=== PATIENT | female | born 1990 | race Caucasian/White ===

== ENCOUNTER 2016-04-17 17:31 | Emergency (ER) | payer BC ==
[~2016-04-17] VITALS: Ht 170.2 cm; Wt 105.5 kg
[~2016-04-17 17:31] MED LIST: ANTIDEPRESSANT; CELEXA10 MG PO; DEPO-PROVER150 MG/M1 IM; LEXAPRO20 MG PO; MACROBID 1100 MG/CAP PO; PHENERGAN 25 TA25 MG PO; TENORMIN 5050 MG/TAB PO
[2016-04-17 17:33] VITALS: TEMP 97.8
[2016-04-17] MEDS ORDERED: COLESTID 1GM1 G PO (17:37)
[2016-04-17] MEDS ORDERED: ZANTAC 150MG T150 MG PO (17:37)
[2016-04-17 18:58] LABS: BASO # 0.1 (0.0-0.2); BASO % 0.4 % (0.0-2.0); EOS # 0.2 (0.0-0.7); EOS % 1.3 % (0-4.0); GRAN # 14.2 (1.4-6.5); GRAN % 77.9 % (42.2-75.2); HEMATOCRIT 38.5 % (37.0-47.0); HEMOGLOBIN 12.5 g/dl (12.5-16.0); LYMPH # 2.7 (1.2-3.4); LYMPH % 14.6 % (20.0-51.0); MEAN CELL VOLUME 90 fl (80.0-100.0); MEAN CORPUSCULAR HEMOGLOBIN 29 pg (27.0-31.0); MEAN CORPUSCULAR HGB CONC 33 g/dl (33.0-37.0); MEAN PLATELET VOLUME 10.1 fl (7.4-10.4); MONO % 5.4 % (1.7-9.3); PLATELET COUNT 227 K/mm3 (130-400); RED BLOOD COUNT 4.28 M/mm3 (4.10-5.30); REDCELL DISTRIBUTION WIDTH-CV 12.1 % (11.5-14.5); WHITE BLOOD COUNT 18.3 K/mm3 (4.8-10.8)
[2016-04-17 19:15] LABS: ADJUSTED CALCIUM 9.4 mg/dL (8.4-10.2); ALBUMIN 3.9 gm/dL (3.5-5.0); BILIRUBIN,TOTAL 0.7 mg/dL (0.0-1.0); C-REACTIVE PROTEIN 0.7 mg/dL (0.0-0.9); CALCIUM 9.3 mg/dL (8.4-10.2); CREATININE, serum 0.69 mg/dL (0.52-1.25); POTASSIUM 3.8 mmol/L (3.4-5.0); TOTAL PROTEIN 6.9 gm/dL (6.4-8.2)
[2016-04-17 19:31] LABS: PH 6 (5-8); URINE APPEARANCE Hazy; URINE BACTERIA None Seen /hpf; URINE BILIRUBIN Positive (NEGATIVE); URINE BLOOD Negative (NEGATIVE); URINE COLOR Amber; URINE GLUCOSE Negative (NEGATIVE); URINE KETONE Trace (NEGATIVE); URINE RBC 0-2 /hpf; URINE UROBILINOGEN >=4.0 mg/dL (NEGATIVE)
[2016-04-17] MEDS ORDERED: ZOFRAN 4MG T4 MG/TAB PO (20:16)
[2016-04-17 20:25] VITALS: BP 117/88; PULSE 55
== END 2016-04-17 20:25 | disposition home or self-care (01) ==
LOC: COL.ER 17:31
PROVIDERS: Emergency Medicine
DX: R10.84 Generalized abdominal pain (principal); R11.10 Vomiting, unspecified
CPT/HCPCS: J2405; J7030; Q9967

== ENCOUNTER → 2016-12-12 | Outpatient (CLI) | payer BC ==
[~2016-12-12] MED LIST changes: +COLESTID 1GM1 G PO; +ZANTAC 150MG T150 MG PO; +ZOFRAN 4MG T4 MG/TAB PO
== END ==
LOC: COL.RAD 10:24
DX: N30.20 Other chronic cystitis without hematuria (principal)

== ENCOUNTER → 2018-02-07 | Outpatient (CLI) | payer OTHER ==
[~2018-02-07] MED LIST changes: +EPA FISH OIL1 SGL PO; +FIORINAL W/CODE1 CA2 PO; +HAIRSKINNAILS PO; +INDERAL 20MG20 MG PO; +PROBIOTIC FORMU1 CAP PO; +PROMETHAZINE12.5 M5 PO; +SEPTRA DS 8001 TAB PO; +WOMEN'S DAILY1 TAB PO
== END ==
LOC: COL.RAD 12:39
DX: M79.671 Pain in right foot (principal); M25.552 Pain in left hip